=== PATIENT | male | born 1970 | race Caucasian/White ===

== ENCOUNTER 2017-01-07 13:55 | Emergency (ER) | payer MEDICARE, MEDICAID ==
[~2017-01-07] VITALS: Ht 152.4 cm; Wt 45.0 kg
[~2017-01-07 13:55] MED LIST: AMOXICILLI400 MG/5 M PO; AMOXICILLIN500 MG PO; ANTIHISTAMIN25 MG PO; AUGMENTIN400 MG/5 M PO; AUGMENTIN875TAB PO; CIPRODEX1 ML AD; CIPROFLOXACN500 MG PO; CYANOCOBALAM1000 MCG IJ; CYANOCOBALAM1000 MCG IM; FLONASE NASAL50 MCG; FLUARIX QUADRIV1 IN1 IM; FLUARIX QUADRIV1 INJ IM; FLUZONE SPLT1 M1 IM; IRON CHEWS OR; KEFLEX500 MG PO; NAPROSYN500 MG PO; OMEPRAZOLE40 MG; OMEPRAZOLE40 MG PO; PREVACID30 M1 OR; PRILOSEC40 MG PO; SEPTRA PO
[2017-01-07 14:28] LABS: URINE BILIRUBIN - DIPSTICK NEGATIVE (NEGATIVE); URINE BLOOD DIPSTICK LARGE (NEGATIVE); URINE CLARITY CLOUDY; URINE COLOR YELLOW; URINE GLUCOSE - DIPSTICK NEGATIVE (NEGATIVE); URINE KETONE TRACE mg/dL (NEGATIVE); URINE NITRITE - DIPSTICK NEGATIVE (Negative); URINE PH 5.5 (4.5-8.0); URINE PROTEIN - DIPSTICK 30 mg/dL (NEG-TRACE); URINE SPECIFIC GRAVITY 1.025
[2017-01-07 14:34] LABS: URINE LEUK ESTERASE MODERATE (NEGATIVE)
[2017-01-07 14:35] LABS: URINE BACTERIA MANY hpf; URINE SQUAMOUS EPITHELIAL CELL FEW EPI/hpf (0-FEW); URINE WBC 50-100 WBC/hpf (0-5)
[2017-01-07] MEDS ORDERED: BACTRIM DS1 TAB PO (16:26)
[2017-01-07 16:35] VITALS: BP 106/66
== END 2017-01-07 16:35 | disposition home or self-care (01) ==
LOC: ED 13:55
PROVIDERS: Emergency Medicine
DX: N39.0 Urinary tract infection, site not specified (principal); R50.9 Fever, unspecified; B96.20 Unspecified Escherichia coli [E. coli] as the cause of diseases classified elsewhere

== ENCOUNTER 2021-08-11 10:37 | Observation (INO) | payer MEDICARE, MEDICAID ==
[2021-08-11] VITALS (8 sets, daily range): BP systolic 100–132; BP diastolic 60–81
[~2021-08-11] VITALS: Ht 154.9 cm; Wt 36.0 kg
[~2021-08-11 10:37] MED LIST changes: +BACTRIM DS1 TAB PO; +LEVOTHYROXIN25 MC1 PO
--- NOTE | 2021-08-11 12:37 | NUR ---
PT ARRIVED VIA STRETCHER WITH RN RADHA AND FILIPE. MOTHER (BARAK) AT BEDSIDE. ASSESSMENT AND VITALS ALLOWED. PT IS MENTALLY CHALLENGED. MOTHER WILL REMAIN WITH PT OVER NIGHT. LALIT AWARE AND ALLOWED STAY. IV 20G RAC INFUSING NS PER EMAR. FALL/SAFTEY PRECAUTION IN PLACE. CALL LIGHT IS WITHIN REACH.
--- NOTE | 2021-08-11 15:20 | NUR ---
Patient medication reconciliation is complete, interviewed patient's mother at bedside to obtain the patient home medication list. Patient is allergi to garamycin, gentamicin, aminoglycosides.
--- NOTE | 2021-08-11 16:00 | NUR ---
PT VOICED PAIN IN BACK. PAIN MEDICATION GIVEN. SEE EMAR
--- NOTE | 2021-08-11 18:40 | NUR ---
DR VINSON INFORMED OF PT STATUS AND TEMPS BY DAY NURSE.
--- NOTE | 2021-08-11 18:40 | NUR ---
DR VINSON UPDATE ON PT STATUS BY DAY NURSE.
--- NOTE | 2021-08-11 19:00 | NUR ---
RECIEVED REPORT FROM ADRIANO SILVERMAN
--- NOTE | 2021-08-11 19:46 | NUR ---
PT RESTING IN SEMI FOWLERS POSITION WITH MOTHER AT BEDSIDE. PT IS A/OX1, PT MENTALLY DELAYED. RESPIRATIONS EVEN AND UNLABORED. LUNG SOUNDS CLEAR. HEART RHYTHM NORMAL. BOWEL SOUNDS ACTIVE, PT REPORTS BURPING. #20G RAC INFUSING WITH IVF PER ORDER, SITE RMAINS HEALTHY AND PATENT. SKIN INTACT. PT COMPLAINS OF 5/10 PAIN IN THROAT. PT TO BE MEDICATED PER EMAR. ALL SAFTEY PRECAUTIONS ARE IN PLACE WITH CALL LIGHT IN REACH. WILL CONTINUE TO MONITOR.
--- NOTE | 2021-08-11 21:54 | NUR ---
REASSESSMENT OF TEMP RESULTING IN 98.8
--- NOTE | 2021-08-11 22:32 | NUR ---
MOTHER OF PT STATES UTI ARE FREQUENT. URINE SAMPLE COLLECTED
[2021-08-11 22:37] LABS: URINE BILIRUBIN - DIPSTICK NEGATIVE (NEGATIVE); URINE BLOOD DIPSTICK NEGATIVE (NEGATIVE); URINE CLARITY CLEAR; URINE COLOR YELLOW; URINE GLUCOSE - DIPSTICK NEGATIVE (NEGATIVE); URINE KETONE 15 mg/dL (NEGATIVE); URINE LEUK ESTERASE NEGATIVE (Negative); URINE NITRITE - DIPSTICK NEGATIVE (Negative); URINE PROTEIN - DIPSTICK NEGATIVE (NEG-TRACE); URINE SPECIFIC GRAVITY 1.015; URINE UROBILINOGEN - DIPSTICK 0.2 E.U./dL (0.2)
[2021-08-12] VITALS: BP 125/74
--- NOTE | 2021-08-12 00:08 | NUR ---
PT SLEEPING IN SEMI FOWLERS POSITION WITH MOTHER AT BEDSIDE. RESPIRATIONS EVEN AND UNLABORED ON ROOM AIR. #20G RAC INFUSING WITH IVF PER ORDER, SITE PATENT. NO SIGNS OF ANY DISTRESS. ALL SAFTEY PRECAUTIONS ARE IN PLACE WITH CALL LIGHT IN REACH. WILL CONTINUE TO MONITOR
[2021-08-12 04:00] VITALS: BP 118/66
--- NOTE | 2021-08-12 04:13 | NUR ---
PT SLEEPING IN SEMI FOWLERS POSITION. RESPIRATIONS ARE EVEN AND UNLABORED ON ROOM AIR. #20G RAC INFUSING WITH IVF PER ORDER, SITE PATENT. NO SIGNS OF ANY PAINS OR DISCOMFORTS. MOTHER TO REMAIN AT BEDSIDE. ALL SAFTEY PRECAUTIONS IN PLACE WITH CALL LIGHT IN REACH .
--- NOTE | 2021-08-12 07:52 | NUR ---
ARIANE COURTNEY CAME TO UNIT, STATED HE DIDNOT ORDER BARIUM SWALLOW FOR PT, HE ORDERED GASTROGRAFFIN TO RULE OUT ESOPHAGEAL PERFORATION. ARIANE CALLED UNIT LATER TO CANCEL GASTROGRAFFIN ORDER, KEEP PT NPO, WILL DO PROCEDURE IN RADIOLOGY.
[2021-08-12 07:54] LABS: HEMATOCRIT 41.9 % (39.0-50.0); IMMATURE GRANULOCYTES 0.2 % (0.0-5.0); MEAN CELL VOLUME 94.6 fL CALC (80.0-100.0); MEAN CORPUSCULAR HGB 31.6 pG CALC (26.0-32.0); MEAN CORPUSCULAR HGB CONC 33.4 g/dL CAL (32.0-36.0); NEUT# 13.4 thou/uL (1.82-7.42); RED BLOOD COUNT 4.43 mill/uL (4.70-6.10); RED CELL DISTRI WIDTH 13.2 % (11.5-15.5)
--- NOTE | 2021-08-12 08:00 | NUR ---
SHIFT CHANGE REPORT, PT AWAKE AND ALERT TO SELF AND PERSON, C/O BACK PAIN, IVF INFUSING, MOTHER AT BEDSIDE, CALL GONZALEZ IN REACH AND BED LOCKED IN LOWEST POSITION.
[2021-08-12 08:14] LABS: ALKALINE PHOSPHATASE 64 u/l (38-126); ANION GAP 15 (6-22 (CALC)); BUN 17 mg/dL (9-20); BUN/CREATININE RATIO 16 (12-20 (CALC)); CARBON DIOXIDE 21 mmol/l (22-30); CHLORIDE 106 mmol/l (95-108); CREATININE 1.1 mg/dL (0.7-1.3); GFR > 60 ML/MIN (>=60 (CALC)); GFR FOR AFR.AMER. > 60 ML/MIN (>=60 (CALC)); POTASSIUM 4.1 mmol/l (3.5-5.1); SODIUM 138 mmol/l (137-146); TOTAL PROTEIN 6.6 g/dL (6.3-8.2)
[2021-08-12 08:18] LABS: ALBUMIN 3.7 g/dL (3.2-5.0); BILIRUBIN, TOTAL 2.2 mg/dL (0.0-1.4); SGOT/AST 74 u/l (17-59)
--- NOTE | 2021-08-12 08:37 | NUR ---
LEAVING UNIT AT THIS TIME TO RADIOLOGY FOR PROCEDURE, PARENT ACCOMPANYING.
--- NOTE | 2021-08-12 09:15 | NUR ---
RETURNED FROM PROCEDURE AND SETTLED IN ROOM, WILL CONTINUE TO MONITOR.
[2021-08-12 10:09] VITALS: BP 122/72
[2021-08-12 11:04] VITALS: BP 139/65
--- NOTE | 2021-08-12 12:03 | NUR ---
SITTING UP IN RECLINER AT THIS TIME, NO NEW COMPLAIN, NEEDS BIAZZI NITRATOR OPERATOR ALWAYS DUE TO METAL CHANNENGE, MOTHER IN ROOM.
--- NOTE | 2021-08-12 13:54 | NUR ---
LEFT UNIT TRANLSPORTED VIA W/C TO BE TRANSPORTED TO [facility], PARENT ACCOMPANYING
== END 2021-08-12 14:00 | disposition short-term general hospital (02) ==
LOC: ENDO 10:37 → MS2 11:45 → ORM 12:00 → ENDO 12:00 → MS2 08-12 14:00
PROVIDERS: Nurse Practitioner; ADMIT Internal Medicine; ATTEND Internal Medicine Gastroenterology
PROC: 0DB48ZX Excision of Esophagogastric Junction, Via Natural or Artificial Opening Endoscopic, Diagnostic (ICD-10-PCS; principal; 2021-08-11)
PROC: 0D758ZZ Dilation of Esophagus, Via Natural or Artificial Opening Endoscopic (ICD-10-PCS; 2021-08-11)
DX: K22.2 Esophageal obstruction (principal); K29.70 Gastritis, unspecified, without bleeding; K91.71 Accidental puncture and laceration of a digestive system organ or structure during a digestive system procedure; K44.9 Diaphragmatic hernia without obstruction or gangrene; E03.9 Hypothyroidism, unspecified; K21.9 Gastro-esophageal reflux disease without esophagitis; K30 Functional dyspepsia; F79 Unspecified intellectual disabilities; Y83.8 Other surgical procedures as the cause of abnormal reaction of the patient, or of later complication, without mention of misadventure at the time of the procedure; Z98.890 Other specified postprocedural states
CPT/HCPCS: J0131; J3490; Q9967; S0164

== ENCOUNTER 2021-08-13 17:36 | Inpatient (IN) | payer MEDICARE, MEDICAID ==
[~2021-08-13] VITALS: Ht 154.9 cm; Wt 37.0 kg
--- NOTE | 2021-08-13 17:27 | NUR ---
PT ARRIVED ARRIVED ON THE FLOOR VIA STRETCHER ACCOMPANIED BY MOTHER. PT ORIENTED TO ROOM. CALL LIGHT WITHIN REACH.
[2021-08-13 17:59] VITALS: BP 141/80
[2021-08-13 19:00] VITALS: BP 139/82
--- NOTE | 2021-08-13 20:00 | NUR ---
PT RESTING IN BED WITH MOTHER AT BEDSIDE, PT WATCHING TV, NO SIGNS OF DISTRESS NOTED, RESP EVEN AND UNLABORED. PT ALERT AND ORIENTED BUT DECLINED TO SPEAK AT THIS TIME, WHEN ASKED TO MOVE EXTREMTIES PT STATES "I CANT" MOTHER AT BEDSIDE STATES PT HAS ENDURED ALOT AND IS EXHAUSTED. SKIN INTACT. IVF INITATED TO RAC. TEDS APPLIED. DISCUSSED POC, PT NODDED HEAD IN AGREEMENT. CALL LIGHT IN REACH,CONTINUE TO MONITOR.
--- NOTE | 2021-08-13 20:35 | NUR ---
PT WAS HAVING EMESIS, MD CALLED AND NOTIFIED ORDERS PLACED FOR ZOFRAN AND PROTONIX IV, DISCUSSED WITH PT AND MOTHER, VERBALIZED UNDERSTANDING. PT MEDICATED PER MAR, CALL LIGHT IN REACH,CONTINUE TO MONITOR.
--- NOTE | 2021-08-13 21:30 | NUR ---
PT C/O PAIN TO IV SITE, NOTED SWELLING AND REDNESS REMOVED IV, CATHETER INTACT. ATTEMPTED IV SITE AND UNSUCCESSFULL. CALL TO ICU NURSE YURIY INSERTED NEW IV TO RAC, PT TOLERATED WELL. FLUIDS CONTINUED.
--- NOTE | 2021-08-13 22:23 | NUR ---
CALLED MD PT CONTINUES TO HAVE DRY HEAVING AND SMALL FREQUENT AMOUNTS OF EMESIS. ORDERS ENTERED VIA CPOE, CONTINUE TO MONITOR.
[2021-08-13 23:12] LABS: HEMATOCRIT 38.6 % (39.0-50.0); HEMOGLOBIN 12.4 g/dl (14.0-18.0); MEAN CELL VOLUME 98.2 fL CALC (80.0-100.0); MEAN CORPUSCULAR HGB 31.6 pG CALC (26.0-32.0); MEAN CORPUSCULAR HGB CONC 32.1 g/dL CAL (32.0-36.0); RED BLOOD COUNT 3.93 mill/uL (4.70-6.10); RED CELL DISTRI WIDTH 13.3 % (11.5-15.5)
[2021-08-13 23:16] LABS: ALBUMIN 3.2 g/dL (3.2-5.0); ALKALINE PHOSPHATASE 52 u/l (38-126); BUN 12 mg/dL (9-20); BUN/CREATININE RATIO 15 (12-20 (CALC)); CHLORIDE 110 mmol/l (95-108); CREATININE 0.8 mg/dL (0.7-1.3); GFR > 60 ML/MIN (>=60 (CALC)); GFR FOR AFR.AMER. > 60 ML/MIN (>=60 (CALC)); POTASSIUM 4.2 mmol/l (3.5-5.1); SGOT/AST 25 u/l (17-59); SODIUM 138 mmol/l (137-146); TOTAL PROTEIN 5.9 g/dL (6.3-8.2)
[2021-08-13 23:26] LABS: ANION GAP 20 (6-22 (CALC)); BILIRUBIN, TOTAL 1.1 mg/dL (0.0-1.4); CARBON DIOXIDE 12 mmol/l (22-30)
--- NOTE | 2021-08-14 | NUR ---
PT RESTING IN BED WITH EYES CLOSED, NO SIGNS OF DISTRESS NOTED, RESP EVEN AND UNLABORED. MOTHER AT BEDSIDE, IV ZOSYN HUNG, CALL LIGHT IN REACH,CONTINUE TO MONITOR.
[2021-08-14 04:00] VITALS: BP 115/64
--- NOTE | 2021-08-14 04:00 | NUR ---
PT RESTING IN BED WITH EYES CLOSED, NO SIGNS OF DISTRESS NOTED, RESP EVEN AND UNLABORED. CALL LIGHT IN REACH,CONTINUE TO MONITOR.
[2021-08-14 05:14] LABS: HEMATOCRIT 38.2 % (39.0-50.0); HEMOGLOBIN 12.4 g/dl (14.0-18.0); IMMATURE GRANULOCYTES 0.2 % (0.0-5.0); MEAN CELL VOLUME 96.2 fL CALC (80.0-100.0); MEAN CORPUSCULAR HGB 31.2 pG CALC (26.0-32.0); MEAN CORPUSCULAR HGB CONC 32.5 g/dL CAL (32.0-36.0); NEUT# 7.94 thou/uL (1.82-7.42); RED BLOOD COUNT 3.97 mill/uL (4.70-6.10)
[2021-08-14 05:28] LABS: ALBUMIN 2.9 g/dL (3.2-5.0); ALKALINE PHOSPHATASE 52 u/l (38-126); ANION GAP 17 (6-22 (CALC)); BILIRUBIN, TOTAL 1.3 mg/dL (0.0-1.4); BUN 12 mg/dL (9-20); BUN/CREATININE RATIO 14 (12-20 (CALC)); CARBON DIOXIDE 14 mmol/l (22-30); CHLORIDE 110 mmol/l (95-108); CREATININE 0.8 mg/dL (0.7-1.3); GFR > 60 ML/MIN (>=60 (CALC)); GFR FOR AFR.AMER. > 60 ML/MIN (>=60 (CALC)); POTASSIUM 4.1 mmol/l (3.5-5.1); SGOT/AST 21 u/l (17-59); SODIUM 137 mmol/l (137-146); TOTAL PROTEIN 5.4 g/dL (6.3-8.2)
[2021-08-14 08:30] VITALS: BP 134/72
--- NOTE | 2021-08-14 08:30 | NUR ---
PATIENT IS SITTING IN THE RECLINER WITH MOM AT SIDE. ASSESSMENT DONE. PATIENT IS ALERT. RESPS EVEN AND UNLABORED. PATIENT DENIES PAIN. PATIENT MOM STATED PATIENT FEELS BETTER AND LOOKS BETTER TODAY. LAST BM ON THE 08/10 BUT PATIENT REFUSED THE MILK OF MAG. PATIENT IS TAKING FEW SIPS OF PO FLUIDS. PATIENT DENIES NEEDS. CALL LIGHT IN REACH.
--- NOTE | 2021-08-14 12:06 | NUR ---
PATIENT IS SITTING IN THE RECLINER WITH MOM AND SISTER AT SIDE. NO DISTRESSS NOTED CALL LIGHT IN REACH.
[2021-08-14 14:24] VITALS: BP 134/72
--- NOTE | 2021-08-14 15:59 | NUR ---
FAMILY MEMBER ASSISTED PATIENT TO THE BATHROOM AND THEN BACK TO BED. FAMILY MEMBER STATED MAYBE LATER FOR A SHOWER. CALL LIGHT IN REACH.
[2021-08-14 19:45] VITALS: BP 127/71
--- NOTE | 2021-08-14 19:45 | NUR ---
PATIENT ALERT. LAYING ON RIGHT SIDE. MOM IN ROOM AT BEDSIDE. PATIENT USES ONE WORD RESPONSES OR DOES NOT ANSWER. PLEASANT. ASSESSMENT COMPLETE. COMPLAINTS OF PAIN AND NAUSEA. WILL MEDICATE PER EMAR ORDERS. CALL LIGHT AND BELONGINGS WITHIN REACH.
--- NOTE | 2021-08-15 00:16 | NUR ---
PATIENT RESTING IN BED ON RIGHT SIDE. IV MEDICATION HUNG. PATIENT VOICED NEEDING TO USE RESTROOM TO VOID. MOM PRESENT IN ROOM. NO COMPLAINTS VOICED BY PATIENT.
--- NOTE | 2021-08-15 04:12 | NUR ---
PATIENT LAYING ON LEFT SIDE IN BED WITH EYES CLOSED. NO SIGNS OF DISTRESS NOTED. NO SIGNS OF PAIN OBSERVED AT THIS TIME. MOM REMAINS IN ROOM. CALL LIGHT REMAINS WITHIN PATIENT REACH.
[2021-08-15 04:43] VITALS: BP 116/79
[2021-08-15 05:54] LABS: HEMOGLOBIN 12.2 g/dl (14.0-18.0); MEAN CELL VOLUME 94.1 fL CALC (80.0-100.0); RED BLOOD COUNT 3.93 mill/uL (4.70-6.10); RED CELL DISTRI WIDTH 12.8 % (11.5-15.5)
[2021-08-15 06:18] LABS: ALKALINE PHOSPHATASE 49 u/l (38-126); ANION GAP 16 (6-22 (CALC)); BUN 8 mg/dL (9-20); BUN/CREATININE RATIO 11 (12-20 (CALC)); CARBON DIOXIDE 16 mmol/l (22-30); CHLORIDE 109 mmol/l (95-108); CREATININE 0.8 mg/dL (0.7-1.3); GFR > 60 ML/MIN (>=60 (CALC)); GFR FOR AFR.AMER. > 60 ML/MIN (>=60 (CALC)); MAGNESIUM 1.7 mg/dL (1.6-2.3); POTASSIUM 3.6 mmol/l (3.5-5.1); SGOT/AST 20 u/l (17-59); SODIUM 137 mmol/l (137-146); TOTAL PROTEIN 5.6 g/dL (6.3-8.2)
[2021-08-15 07:20] VITALS: BP 137/74
--- NOTE | 2021-08-15 07:20 | NUR ---
PATIENT RESTING IN BED AT THIS TIME MOTHER AT BEDSIDE. JASON MOTHER DID AGREE TO THE GIVING IF PATIENT LEVOTHYROXIDE AT THIS TIME. CITY SANITARIAN DONE SEE INTERVENTIONS. CALL LIGHT WITHIN REACH. PATIENT ALERT TO NAME AND IS MENTALLY DELAYED. WILL CONTINUE TO MONITOR.
--- NOTE | 2021-08-15 11:55 | NUR ---
PATIENT DENIES ANY NEEDS AT THIS TIME DENEIS ANY PAIN MOTHER AT BEDSIDE SIDERAILS ARE UP CALL LIGHT WITHIN REACH WILL CONTINUE TO MONITOR. PATIENT MEALS ON HOLD UNTIL ALL TEST ARE COMPETED PER DR. PETERS.
--- NOTE | 2021-08-15 16:00 | NUR ---
PATIENT SITTING UP IN CHAIR AT THIS TIME MOM AT BEDSIDE TRYING TO ASSIST PATIENT TO EAT MASHED POTATOES AT THIS TIME. MOM STATES THAT SHE IS HAVING HER DAUGHTER BRING SOME FOOD FROM HOME DUE TO PATIENT BEING "VERY PICKY" ABOUT THE TEXTURE OF HIS FOODS PER MOM. PATIENT DENIES ANY PAIN CALL LIGHT IS WIHTIN REACH. WILL CONTINUE TO MONITOR.
[2021-08-15 16:06] VITALS: BP 133/81
[2021-08-15 18:57] VITALS: BP 134/76
--- NOTE | 2021-08-15 19:43 | NUR ---
PHYSICAL ASSESMENT COMPLETE. PT CURRENTLY COMPLAINS OF PAIN AND DISCOMFORT. SCHEDULED MEDICATIONS AND PRN MEDICATION ADMINISTERED, SEE E-MAR. PT DENIES ANY NEEDS AT THIS TIME. PTS MOTHER IS AT BEDSIDE. PLAN OF CARE REVIEWED, PT DENIES QUESTIONS, VERBALIZES UNDERSTANDING. ITEMS WITHIN REACH, BED LOCKED IN LOW POSITION W/ BEDRAILS UP X2. CALL GONZALEZ WITHIN REACH, AGREES TO CALL PRN.
--- NOTE | 2021-08-16 00:05 | NUR ---
PT LAYING IN BED WITH EYES CLOSED, APPEARS TO BE SLEEPING, APPEARS COMFORTABLE AND IN NO DISTRESS. RESPIRATIONS REGULAR AND UNLABORED. PTS MOTHER IS AT BEDSIDE. ITEMS REMAIN WITHIN REACH, CALL GONZALEZ REMAINS WITHIN REACH. BED REMAINS LOCKED AND IN LOW POSITION WITH BEDRAILS UP X2. WILL CONTINUE TO MONITOR.
--- NOTE | 2021-08-16 03:40 | NUR ---
PT RESTING IN BED, NO SIGNS OF DISTRESS NOTED, RESP EVEN AND UNLABORED. PT VOICES NO NEEDS OR COMPLAINTS AT THIS TIME. MOTHER IS AT BEDSIDE. CALL LIGHT IN REACH, CONTINUE TO MONITOR.
[2021-08-16 04:00] VITALS: BP 143/85
[2021-08-16 07:40] VITALS: BP 139/70
--- NOTE | 2021-08-16 07:40 | NUR ---
PATIENT AWAKE AND ALERT MOM AT BED SIDE DENIES ANY PAIN AT THIS TIME. TOLL TICKET CLERK DONE SEE INTERVENTIONS. CALL LIGHT IS WIHTIN REACH. LUNG HIGHTOWER REMAIN CLEAR. WILL CONTINUE TO MONITOR.
[2021-08-16] MEDS ORDERED: AMOX/K CLA250 MG/5 M PO (10:13)
[2021-08-16] MEDS ORDERED: ZOFRAN4 MG/TAB PO (10:14)
[2021-08-16] MEDS ORDERED: EQ OMEPRAZOLE O20 MG PO (10:16)
--- NOTE | 2021-08-16 11:03 | NUR ---
PATIENT IV REMOVED AT THIS TIME DUE TO PATIENT BEING D/C AT THIS TIME. PATIENT WAS AMBULATED IN [facility] AND THIS NURSE AT THIS TIME PATIENTS GATE WAS STEADY.
--- NOTE | 2021-08-16 11:13 | NUR ---
PATIENT D/C AT THIS TIME. PATIENT'S D/C INSTRUCTIONS GONE OVER WITH MOTHER AT THIS TIME. MOTHER VERBALIZES UNDERSTANDING OF D/C INSTRUCTIONS.
--- NOTE | 2021-08-16 12:25 | NUR ---
Discharge instructions given. Patient verbalizes understanding of same. Discharged in stable condition via Wheelchair to Home with parents. All belongings sent with pt. PATIENT LEFT TO HOME VIA WHEELCHAIR WITH MOTHER AT SIDE.
== END 2021-08-16 12:25 | disposition home or self-care (01) | DRG 920 ==
LOC: MS2 17:36
PROVIDERS: ADMIT Internal Medicine; ATTEND Internal Medicine
DX: K91.71 Accidental puncture and laceration of a digestive system organ or structure during a digestive system procedure (principal); E87.2 Acidosis; T85.528A Displacement of other gastrointestinal prosthetic devices, implants and grafts, initial encounter; K22.2 Esophageal obstruction; K29.70 Gastritis, unspecified, without bleeding; K21.9 Gastro-esophageal reflux disease without esophagitis; E03.9 Hypothyroidism, unspecified; F79 Unspecified intellectual disabilities; M54.50 Low back pain, unspecified; Y83.8 Other surgical procedures as the cause of abnormal reaction of the patient, or of later complication, without mention of misadventure at the time of the procedure; Y83.1 Surgical operation with implant of artificial internal device as the cause of abnormal reaction of the patient, or of later complication, without mention of misadventure at the time of the procedure; Z96.89 Presence of other specified functional implants; R13.10 Dysphagia, unspecified; K44.9 Diaphragmatic hernia without obstruction or gangrene; K30 Functional dyspepsia; Z98.890 Other specified postprocedural states
CPT/HCPCS: G0378; G0379; Q9967; S0164